=== PATIENT | female | born 1990 | race Two or more races ===

== ENCOUNTER 2019-04-11 02:15 | Emergency (ER) | payer OTHER ==
[~2019-04-11] VITALS: Ht 175.3 cm; Wt 56.7 kg
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
[2019-04-11] MEDS ORDERED: HALOPERIDOL LACTATE INJ 5 MG/ML VIAL IM ONE (02:30)
[2019-04-11] MEDS ORDERED: diphenhydrAMINE HCL 50 MG/ML VIAL IM ONE (02:30)
[2019-04-11] MEDS ORDERED: LORAZEPAM INJ 2 MG/ML VIAL IM ONE ×2 (02:30)
[2019-04-11] MEDS ORDERED: LORAZEPAM INJ 2 MG/ML VIAL ONE (02:31)
--- NOTE | 2019-04-11 02:49 | NUR ---
Pt IS MEDICALLY CLEARED. OK TO BOOK.
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
[2019-04-11 03:05] VITALS: BP 138/90
== END 2019-04-11 03:14 ==
LOC: ER 02:17
DX: F10.129 Alcohol abuse with intoxication, unspecified (principal); Y90.9 Presence of alcohol in blood, level not specified
CPT/HCPCS: 99283; J2060